=== PATIENT | female | born 1990 ===

== ENCOUNTER 2017-04-05 07:52 | Inpatient (IN) | payer MEDICARE, MEDICAID ==
[2017-03-15 16:31] VITALS: BMI 25.7
[2017-04-05 08:50] LABS: HEMOGLOBIN 12.6 g/dL (12.0-16.0); MEAN CORPUSCULAR HEMOGLOBIN 30.1 pg (27.0-31.0); MEAN CORPUSCULAR HGB CONC 32.7 g/dL (33.0-37.0); RBC 4.19 Mil/uL (3.80-5.20); WHITE BLOOD COUNT 8.9 K/uL (4.8-10.8)
[2017-04-05] MEDS ORDERED: PRO AIR HFA 8.5GM INHALER(FOR OR USE ONLY) IH ONE (09:00)
[2017-04-05] MEDS ORDERED: Lactated Ringer's 1,000 ML IV ONE ×2 (09:45→09:47)
[2017-04-05] MEDS ORDERED: Bupivacaine 0.25% Inj(30mL) IJ ONE (10:00)
--- NOTE | 2017-04-05 10:06 | RAD ---
HISTORY: pre-op COMPARISON: No prior. TECHNIQUE: Chest PA and lateral FINDINGS: LUNGS: No active pulmonary disease. PLEURA: No significant pleural effusion identified. No pneumothorax apparent. CARDIOVASCULAR: Normal. OSSEOUS STRUCTURES: No significant abnormalities. VISUALIZED UPPER ABDOMEN: Normal. OTHER FINDINGS: None. IMPRESSION: No active disease.
[2017-04-05] MEDS: Methylene Blue 10 mg/mL(10ml) IV ONE ×3 (10:14→11:20)
[2017-04-05] MEDS ORDERED: Dexamethasone 4 mg/1 ml ONE (10:18)
[2017-04-05] MEDS ORDERED: HEMOSTATIC MATRIX 10 ML DIS.NEEDLE TOP ONE ×2 (11:17→11:23)
[2017-04-05] MEDS ORDERED: WATER IR ONE (11:46)
[2017-04-05] MEDS ORDERED: [UNRECOGNIZED DRUG - OTHER] IR ONE (11:46)
[2017-04-05] MEDS ORDERED: Propofol 10 mg/ml Inj (20 ML) ONE (11:50)
[2017-04-05] MEDS ORDERED: Sodium Chloride 0.9% 1,000 ML IV SCH (12:00)
[2017-04-05] MEDS ORDERED: Albuterol-Ipratrop 3 mg / 0.5 (3 ml) UD INH PRN (15:17)
--- NOTE | 2017-04-05 15:34 | PCM.SURG1 ---
Surgeon's Initial Post Op Note - Surgeon's Notes Surgeon: michael rios md [employer] Technician: jey MCINTOSH Type of Anesthesia: General Endo, Other Anesthesia Administered By: Bettye Wray MD Pre-Operative Diagnosis: Chornic pelvic pain. Endometriosis. Right adnexal mass. Infertility Operative Findings: Frozen abdomin, Stage 4 endometriosis, large endometrioma on right adnexa, patent left falopian tube, slugish partialy blocked right tube , hunner lessions c/w IC, Dense bowsel adhesions throughout the abdominal and pelvic cavity. pelvic anatomy c/w stage 4 endometiosis and possible prior PID Post-Operative Diagnosis: Chornic pelvic pain. Endometriosis Stage 4. Right adnexal mass. Interstitial cystitis. Infertility Operation Performed: Robotic assited excision of endometriosis. Enterolysis, Lysis of adhesions. chromotubation. Cystoscopy Specimen/Specimens Removed: endometriosis Estimated Blood Loss: EBL {In ML}: 10 Blood Products Given: N/A Drains Used: No Drains Post-Op Condition: Good Date of Surgery/Procedure: 04/05/17 Time of Surgery/Procedure: 09:38
[2017-04-05] MEDS: ceFAZolin IV 2 gm in Dextrose 2 GM/50 ML BAG IVPB SCH ×2 (16:55→23:27)
[2017-04-05] MEDS: Lactated Ringer's 1,000 ML IV SCH ×2 (16:58→23:34)
[2017-04-06 07:20] LABS: BLOOD UREA NITROGEN 6 mg/dl (7-17); CALCIUM 8.3 mg/dL (8.4-10.2); GFR AFRICAN-AMERICAN > 60; GFR NON-AFRICAN AMERICAN > 60
[2017-04-06 07:22] LABS: HEMOGLOBIN 10.8 g/dL (12.0-16.0); MEAN CELL VOLUME 90.3 fl (81.0-99.0); MEAN CORPUSCULAR HGB CONC 34.4 g/dL (33.0-37.0); RBC 3.5 Mil/uL (3.80-5.20); RED CELL DISTRIBUTION WIDTH 13.8 % (11.5-14.5); WHITE BLOOD COUNT 16.3 K/uL (4.8-10.8)
[2017-04-06] MEDS: ceFAZolin IV 2 gm in Dextrose 2 GM/50 ML BAG IVPB SCH (08:09)
[2017-04-06 08:32] VITALS: BP 125/77
[2017-04-06] MEDS ORDERED: Potassium Chloride 20 mEq ER Tab PO ONE (09:40)
--- NOTE | 2017-04-06 09:40 | CP.PCM.PN ---
Subjective - Date & Time of Evaluation Date of Evaluation: 04/06/17 Time of Evaluation: 09:00 - Subjective Subjective: Patient states pain overnight was bad, tylenol does not help pain, but injection helps a little. 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 She says she has never had any exacerbation of asthma or anaphylaxis from tylenol #3. +void, +passing gas. Patient out of bed and good appetitie. Objective - Vital Signs/Intake and Output Vital Signs (last 24 hours): Temp Pulse Resp BP Pulse Ox 99.4 F 88 16 125/77 99 04/06/17 08:31 04/06/17 08:31 04/06/17 08:31 04/06/17 08:31 04/06/17 08:31 Intake and Output: 04/06/17 04/06/17 06:59 18:59 Intake Total 1845 Output Total 950 Balance 895 - Medications Medications: Current Medications Acetaminophen (Tylenol 325mg Tab) 975 mg PO Q8H [facility] Last Admin: 04/06/17 04:24 Dose: 975 mg Albuterol/Ipratropium (Duoneb 3 Mg/0.5 Mg (3 Ml) Ud) 3 ml INH RQ6 PRN PRN Reason: Shortness of Breath Sodium Chloride (Sodium Chloride 0.9%) 1,000 mls @ 100 mls/hr IV .Q10H [facility] Lactated Ringer's (Lactated Ringer's) 1,000 mls @ 125 mls/hr IV .Q8H [facility] Last Admin: 04/05/17 23:34 Dose: 125 mls/hr Ketorolac Tromethamine (Toradol) 30 mg IVP Q6 [facility] Last Admin: 04/06/17 09:11 Dose: 30 mg Metformin HCl (Glucophage) 500 mg PO BID [facility] Montelukast Sodium (Singulair) 10 mg PO DAILY [facility] Last Admin: 04/06/17 08:17 Dose: 10 mg Ondansetron HCl (Zofran Inj) 2 mg IVP Q6H PRN PRN Reason: Nausea/Vomiting - Labs Labs: 04/06/17 06:20 04/06/17 06:20 - GI/Abdominal Exam Additional comments: abd slightly distended, soft, +BS, incisions intact, dry, no vaginal bleeding Assessment and Plan (1) Chronic pelvic pain in female Assessment & Plan: POD#1 s/p robotic assisted laparoscopic excsion of endo, enterolysis, lysis of adhesions, cystoscopy -d/c home today encourage OOB rx for pain, proceed to ER for any reaction f/u Dr. Bennett 1-2 weeks call for appt d/w Dr. 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 Patient counseled on the risks of addiction, physical or psychological dependence, and overdose associated with opioid drugs and the danger of taking opioid drugs with alcohol and other central nervous system depressants, and cautioned patient on storage and disposal. Status: Acute (2) Endometriosis Status: Acute (3) Adnexal mass Status: Acute (4) Infertility Status: Acute (5) Interstitial cystitis Status: Acute
[2017-04-06] MEDS ORDERED: Acetaminophen-Codeine 300/30 mg Tab PO PRN (10:30)
[2017-04-06] MEDS ORDERED: Acetaminophen-Codeine 300/30 mg Tab PO ONE (10:40)
[2017-04-06 12:07] VITALS: PULSE 82; RESP 18; TEMP 99; O2SAT 100
--- NOTE | 2017-04-12 21:35 | PCM.OP ---
Operative Report - Operative Report Date of Surgery/Procedure: 04/05/17 Time of Surgery/Procedure: 09:35 Surgeon: Shirin Bennett MD Cider Maker: Natalie MCINTOSH Anesthesia/Sedation: Gen. with ET tube Pre-Operative Diagnosis: Chornic pelvic pain. Endometriosis. Right adnexal mass. Infertility Post-Operative Diagnosis: Chornic pelvic pain. Endometriosis Stage 4. Right adnexal mass. Interstitial cystitis. Infertility Indication for Surgery: worsening chronic pelvic pain as well as an enlarged RIGHT adnexal mass and infertility Operative Findings: Frozen abdomin, Stage 4 endometriosis, large endometrioma on right adnexa, patent left falopian tube, slugish partialy blocked right tube , hunner lessions c/w IC, Dense bowsel adhesions throughout the abdominal and pelvic cavity. pelvic anatomy c/w stage 4 endometiosis and possible prior PID Procedure/Operation Description: Robotic assited excision of endometriosis. Enterolysis, Lysis of adhesions. Chromotubation. Cystoscopy. Detailed operative procedure. This is a 27 years old female with chronic pelvic pain , severe dyspareunia, abnormal uterine bleeding, and a RIGHT adnexal mass consistent with an endometrioma with failed conservative management for several years. In addition, the patient has been reporting infertility for prolonged periods of time. The patient described this pain as debilitating and limiting her daily activity and adversely affecting her quality of life. Following a complete work up at the office which included a U/S, vaginal cultures, hematology and chemistry, decision was made to proceed with a robotic assisted possible excision of endometriosis, large endometrioma and chromotubation. After proper consent was obtained from the patient, she was taken to the operating room, placed in lithotomy position, her legs placed in adjustable stirrups. Careful attention was placed to avoid hyper flexion or hyper-rotation of the lower extremities. Exam under anesthesia revealed an enlarged fixed none-mobile uterus, cervix severely displaced anteriorly, and adnexal fullness bilaterally Right > Left. She was prepped and draped for a robotic assisted pelvic surgery. Tilley catheter was placed in sterile condition. The cervix was dilated and the Vcare uterine manipulator was inserted and secured. While tenting the abdominal wall, a veres needle was inserted through the umbilicus and a pneumoperitoneum was obtained. A 1 cm incision was made approx. 1 cm above the umbilicus and a trocar and sleeve were introduced. The patient was placed in Trendelenburg position. A robotic camera was introduced and an initial survey of the pelvic cavity revealed an extensive presentation of peritoneal and bowel adhesions consistent with a typical frozen abdomen, Stage 4 endometriosis, large endometrioma on right adnexa. Dense bowel adhesions throughout the abdominal and pelvic cavity. pelvic anatomy c/w stage 4 endometriosis from possible prior PID. Three robotic ports were used for the procedure and were inserted through 8 mm incisions. The first port was inserted on the right side approximately 7 cm cephalic to the superior iliac crest; the second port was placed in a mirror image location on the contralateral side, the third port was placed on the patient right side approx. 7cm lateral of the camera port in the midline. An bindery library technical assistant port was placed through a 1 cm incision. Lateral side docking was achieved with the robot with no difficulty. A monopolar shear was inserted through the port on the right side and a PK was inserted through the port on the left side. Meticulous lysis of peritoneal adhesions was accomplished with the fide and the PK. A long and meticulous process of enterolysis was completed in order to access uterus and posterior cul-de-sac. Multiple lesions of endometriosis on the posterior wall of the cul-de-sac. Deep endometriosis lesions were excised from the cul-de -sac with careful attention to avoid compromise to the nearby ureters. Due to the close proximity to both ureters, the pelvic sidewall was explored and ureters traced and traced from the pelvic brim and traced along the sidewall towards the cervical uterine junction. Both ureters were explored, and cleared free of these extensive lysis of adhesions and ablation/excision of endometriosis. Extensive adhesiolysis from both fallopian tubes was completed. The right tube which was tighly adherent was released from a complex of adhesions along the pelvic side wall. The left tube was more severely adherent and distorted. Chromotubation was performed using diluted methylene blue solution through the channel of the [employer] manipulator. Visual assessment of the fimbria revealed patent tube on the LEFT and sluggish and possibly partially blocked RIGHT fallopian tube. The endometriosis lesions excised were extracted from the pelvic cavity and sent to pathology labeled appropriately. Finally, attention was turned to the excision of the large RIGHT adnexal mass which was proven to be an endometrioma. In a meticulous and careful fashion the mass was enucleated preserving the ovarian tissue, extracted from the abdomen and an Endo Catch. The abdomen was throughout irrigated and cleared of clots and debris. The ureters were once again visualized with peristalsis and excellent hemostasis noted throughout. Flow-seal and inter-seed to prevent further adhesions placed over the excision / ablation beds. All instruments were removed under direct visualization; the robotic arms were undocked. Pneumoperitoneum was reduced. The camera port was closed at a fascial layer with a 2-0 vicryl. All skin incisions were closed with a 4-0 monocryl in a subcuticular fashion. The Vcare was removed and Tilley remained to be removed the next morning. Prior to incision, patient received prophylactic antibiotics (Ancef), prior to closure, sponge lap and needle count were correct times two. Patient was taken to recovery room under stable condition. Of note: This was an exceptionally difficult surgical procedure, requiring a high level of expertise in order to lyse off tight bladder uterine and bowel adhesions and somewhat restore pelvic anatomy. Estimated Blood Loss: 10 Blood Replaced: none Sponge/Instrument Count: sponge lap and needle count were correct x2 Drains: none Complications: none Specimen: endometriosis Discharge & Condition: patient discharged home on day one when criteria is met
== END 2017-04-06 12:50 | disposition home or self-care (01) | DRG 743 ==
LOC: H.OPSURG 07:52 → H.PEDS 11:57
PROVIDERS: ADMIT Obstetrics & Gynecology; ATTEND Obstetrics & Gynecology
PROC: 0UN74ZZ Release Bilateral Fallopian Tubes, Percutaneous Endoscopic Approach (ICD-10-PCS; 2017-04-05)
PROC: 0UB04ZZ Excision of Right Ovary, Percutaneous Endoscopic Approach (ICD-10-PCS; 2017-04-05)
PROC: 0UBF4ZZ Excision of Cul-de-sac, Percutaneous Endoscopic Approach (ICD-10-PCS; 2017-04-05)
PROC: 3E0P8KZ Introduction of Other Diagnostic Substance into Female Reproductive, Via Natural or Artificial Opening Endoscopic (ICD-10-PCS; 2017-04-05)
PROC: 3E0 Administration, Physiological Systems and Anatomical Regions, Introduction (ICD-10-PCS; 2017-04-05)
PROC: 8E0W4CZ Robotic Assisted Procedure of Trunk Region, Percutaneous Endoscopic Approach (ICD-10-PCS; 2017-04-05)
PROC: 0DNE4ZZ Release Large Intestine, Percutaneous Endoscopic Approach (ICD-10-PCS; principal; 2017-04-05 09:45)
DX: N80.3 Endometriosis of pelvic peritoneum (principal); N30.10 Interstitial cystitis (chronic) without hematuria; E28.2 Polycystic ovarian syndrome; N97.0 Female infertility associated with anovulation; Z88.6 Allergy status to analgesic agent; Z88.1 Allergy status to other antibiotic agents; Z88.5 Allergy status to narcotic agent; Z91.018 Allergy to other foods; J45.909 Unspecified asthma, uncomplicated; N94.10 Unspecified dyspareunia; N93.9 Abnormal uterine and vaginal bleeding, unspecified; N94.89 Other specified conditions associated with female genital organs and menstrual cycle; N73.6 Female pelvic peritoneal adhesions (postinfective); N80.1 Endometriosis of ovary